=== PATIENT | male | born 1965 | race Caucasian/White ===

== ENCOUNTER 2018-02-10 17:57 | Emergency (ER) | payer MEDICAID, SELFPAY ==
[2018-02-10 18:07] VITALS: BP 120/81; PULSE 74; RESP 20; TEMP 36.6; O2SAT 99; BMI 26.8
--- NOTE | 2018-02-10 18:09 | HMH.EDUTC ---
[facility] [place] [facility] [place] Clinical Impression: Contusion of rib on left side Qualifiers: Encounter type: initial encounter Qualified Code(s): S20.212A - Contusion of left front wall of thorax, initial encounter Disposition: Home, Self-Care Condition on Discharge: Good Instructions: DI for Rib Contusion Additional Instructions: F/U with PCP 2-3 days Prescriptions: Cyclobenzaprine HCl [Flexeril 10mg tablet] 10 mg PO Q8HP PRN 30 Days #10 tab PRN Reason: Muscle Spasm Time of Disposition: 18:59 Medical Decision Making - Jaskaran Inquiry Pt receiving controlled substance: No Vital Signs: 02/10/18 18:07 Temperature 98 F Temperature Source Temporal Artery Scan Pulse Rate [Right Brachial] 74 Respiratory Rate 20 Blood Pressure [Right Arm] 120/81 Blood Pressure Mean [Right Arm] 94 Blood Pressure Source [Right Arm] Automatic Cuff Blood Pressure Position [Right Arm] Sitting 02 Sat by Pulse Oximetry 99 Oxygen Delivery Method Room Air Orders (Tests/Meds): ORDERS Category Date Time Status XR ribs LT min 3V w CXR1V Stat Exams 02/10/18 18:17 Taken - Radiology Data #1 Image(s): Chest, Other (ribs) Image Reviewed: Yes I reviewed the patient's radiology image Preliminary Findings: No Fracture Seen [facility] [place] [facility] [place] - General Stated complaint: AO 02/10/18 @ 1530 Fell, left side pain Time Seen by Provider: 02/10/18 18:09 - History of Present Illness Provider Complaint: Patient was getting out of bath tub around 1530 when he lost his footing and fell out of tub, landing on left side. Has pain in left side, can't take a deep breath, and his left arm feels numb. He is a smoker and has had pneumonia in the past. Onset (ago): hour(s) (3) Location: chest Quality: aching Consistency: constant Relieving factors: none Associated symptoms: chest pain, shortness of breath Treatments prior to arrival: none - Related Data Previous Rx's Medication Instructions Recorded Cyclobenzaprine HCl [Flexeril 10mg 10 mg PO Q8HP PRN 30 Days #10 tab 02/10/18 tablet] Allergies Allergy/AdvReac Type Severity Reaction Status Date / Time codeine [CODEINE] Allergy Mild Verified 02/10/18 18:10 naproxen [From [facility]] Allergy Unknown I-HIVES Unverified 10/28/17 14:52 morphine Allergy Verified 02/10/18 18:10 [facility] History I have reviewed the patient's past medical history: Yes Medical History: Reports:: Chronic Obstructive Pulmonary Disease (COPD) ROS Obtained: Yes All systems reviewed & no additional complaints - Respiratory Respiratory: Yes dyspnea, Yes pain on inspiration - Musculoskeletal Musculoskeletal: Reports as per HPI Physical Exam - General General appearance: alert, in no apparent distress - Head Head exam: atraumatic, normocephalic - Eye Eye exam: Present: normal appearance, PERRL - Chest Chest inspection: Present: normal inspection, symmetric chest wall rise, tenderness - Expanded Chest Exam Trauma: Present: other (tenderness left lateral chest wall) - Respiratory Respiratory exam: Present: normal lung sounds bilaterally, other (guarded inspiration) - Cardiovascular Cardiovascular exam: Present: regular rate, normal rhythm - Abdominal Exam Abdominal exam: Present: soft. Absent: distention, tenderness, guarding - Extremities Exam Extremities exam: Present: normal inspection, full ROM, normal capillary refill. Absent: tenderness - Back Exam Back exam: Present: normal inspection, full ROM - Neurological Exam Neurological exam: Present: alert, oriented X3
--- NOTE | 2018-02-10 18:16 | ED_ITS ---
[facility] [place]: Contusion of rib on left side Qualifiers: Encounter type: initial encounter Qualified Code(s): S20.212A - Contusion of left front wall of thorax, initial encounter Disposition: Home, Self-Care Condition on Discharge: Good Instructions: DI for Rib Contusion Additional Instructions: F/U with PCP 2-3 days Prescriptions: Cyclobenzaprine HCl [Flexeril 10mg tablet] 10 mg PO Q8HP PRN 30 Days #10 tab PRN Reason: Muscle Spasm Time of Disposition: 18:59 Medical Decision Making - Jaskaran Inquiry Pt receiving controlled substance: No Vital Signs: 02/10/18 18:07 Temperature 98 F Temperature Source Temporal Artery Scan Pulse Rate [Right Brachial] 74 Respiratory Rate 20 Blood Pressure [Right Arm] 120/81 Blood Pressure Mean [Right Arm] 94 Blood Pressure Source [Right Arm] Automatic Cuff Blood Pressure Position [Right Arm] Sitting 02 Sat by Pulse Oximetry 99 Oxygen Delivery Method Room Air Orders (Tests/Meds): ORDERS Category Date Time Status XR ribs LT min 3V w CXR1V Stat Exams 02/10/18 18:17 Taken - Radiology Data #1 Image(s): Chest, Other (ribs) Image Reviewed: Yes I reviewed the patient's radiology image Preliminary Findings: No Fracture [place] [facility] [place] - General Stated complaint: AO 02/10/18 @ 1530 Fell, left side pain Time Seen by Provider: 02/10/18 18:09 - History of Present Illness Provider Complaint: Patient was getting out of bath tub around 1530 when he lost his footing and fell out of tub, landing on left side. Has pain in left side, can't take a deep breath, and his left arm feels numb. He is a smoker and has had pneumonia in the past. Onset (ago): hour(s) (3) Location: chest Quality: aching Consistency: constant Relieving factors: none Associated symptoms: chest pain, shortness of breath Treatments prior to arrival: none - Related Data Previous Rx's Medication Instructions Recorded Cyclobenzaprine HCl [Flexeril 10mg 10 mg PO Q8HP PRN 30 Days #10 tab 02/10/18 tablet] Allergies Allergy/AdvReac Type Severity Reaction Status Date / Time codeine [CODEINE] Allergy Mild Verified 02/10/18 18:10 naproxen [From [facility]] Allergy Unknown I-HIVES Unverified 10/28/17 14:52 morphine Allergy Verified 02/10/18 18:10 [facility] History I have reviewed the patient's past medical history: Yes Medical History: Reports:: Chronic Obstructive Pulmonary Disease (COPD) ROS Obtained: Yes All systems reviewed & no additional complaints - Respiratory Respiratory: Yes dyspnea, Yes pain on inspiration - Musculoskeletal Musculoskeletal: Reports as per HPI Physical Exam - General General appearance: alert, in no apparent distress - Head Head exam: atraumatic, normocephalic - Eye Eye exam: Present: normal appearance, PERRL - Chest Chest inspection: Present: normal inspection, symmetric chest wall rise, tenderness - Expanded Chest Exam Trauma: Present: other (tenderness left lateral chest wall) - Respiratory Respiratory exam: Present: normal lung sounds bilaterally, other (guarded inspiration) - Cardiovascular Cardiovascular exam: Present: regular rate, normal rhythm - Abdominal Exam Abdominal exam: Present: soft. Absent: distention, tenderness, guard
--- NOTE | 2018-02-10 18:17 | XR_ITS ---
XR ribs LT min 3V w CXR1V COMPARISON: None HISTORY: Left chest wall pain after a fall TECHNIQUE: PA chest and left RIBS FINDINGS: The lung grant are well expanded and appear clear of infiltrate. There is no definite pulmonary contusion noted. Cardiac size is normal. All the left ribs appear intact with no fracture seen. There is no pneumothorax. IMPRESSION: Negative PA chest and left RIBS
[2018-02-10 19:03] VITALS: BP 120/81; PULSE 74; RESP 20; TEMP 36.6; O2SAT 99
== END 2018-02-10 19:03 | disposition home or self-care (01) ==
PROVIDERS: Emergency Provider Physician Assistant
DX: S20.212A Contusion of left front wall of thorax, initial encounter (principal); W18.2XXA Fall in (into) shower or empty bathtub, initial encounter; Y92.012 Bathroom of single-family (private) house as the place of occurrence of the external cause; J44.9 Chronic obstructive pulmonary disease, unspecified; Z88.6 Allergy status to analgesic agent
CPT/HCPCS: 71101; 99201

== ENCOUNTER → 2022-07-03 10:04 | Outpatient (CLI) | payer MEDICAID, SELFPAY ==
--- NOTE | 2022-07-03 10:41 | US_ITS ---
FINAL REPORT CLINICAL HISTORY: abdominal pain FINDINGS: Sonographic images of the abdomen were obtained. The liver has an unremarkable appearance with normal echogenicity. The gallbladder has an unremarkable appearance without evidence of gallstones. There is no evidence of biliary ductal dilatation. The common hepatic duct measures 3 mm, which is within normal limits. Limited images of the pancreas are unremarkable. The spleen size is normal. The right kidney measures 12.0 cm in length. The left kidney measures 12.1 cm in length. There is normal renal echogenicity. There is no evidence of hydronephrosis. The aorta has an unremarkable appearance. Limited images of the inferior vena cava are unremarkable. IMPRESSION: Unremarkable abdominal ultrasound with no acute abnormality identified. Reviewed, Interpreted and Dictated by Rosalio Rascon MD Transcribed by Cristina Hirsch Authenticated and [facility]
== END ==
PROVIDERS: Visit Provider Surgery
DX: R10.9 Unspecified abdominal pain (principal)
CPT/HCPCS: 76700

== ENCOUNTER → 2022-07-25 09:01 | Outpatient (CLI) | payer MEDICAID, SELFPAY ==
--- NOTE | 2022-07-25 09:09 | CT_ITS ---
FINAL REPORT CLINICAL HISTORY: abdominal pain patient drank oral contrast but was not able to keep it all down FINDINGS: CT OF THE ABDOMEN AND PELVIS WITH CONTRAST Axial CT images of the abdomen and pelvis were obtained after the administration of oral and iv contrast. Coronal reformatted images were also obtained and reviewed.This study was performed with techniques to keep radiation doses as low as reasonably achievable (ALARA). Individualized dose reduction techniques using automated exposure control or adjustment of mA and/or kV according to the patient's size were employed. Abdomen: There is mild bibasilar scarring or atelectasis.. The heart is normal in size. The liver has an unremarkable appearance, without evidence of mass or biliary ductal dilatation. The gallbladder is present. The spleen is unremarkable. The left adrenal gland is enlarged and may represent an adenoma. The pancreas has an unremarkable appearance. The kidneys are normal, without evidence of mass or hydronephrosis. The aorta is normal in caliber. There is no free fluid or adenopathy. No mass or abnormal fluid collection is seen. Pelvis: The appendix is normal. The urinary bladder is unremarkable. No inflammatory process is seen. There is no evidence of mass or adenopathy. There is no evidence of bowel obstruction. IMPRESSION: No evidence of acute intra-abdominal process. Left adrenal gland enlargement may represent an adenoma. Reviewed, Interpreted and Dictated by Sal Valverde III, MD Transcribed by Eddie James Authenticated and [facility]
== END ==
PROVIDERS: Visit Provider Surgery
DX: R10.9 Unspecified abdominal pain (principal)
CPT/HCPCS: 74177; Q9967